=== PATIENT | male | born 2000 | race Two or more races ===

== ENCOUNTER 2020-06-19 02:07 | Emergency (ER) | payer OTHER ==
[~2020-06-19] VITALS: Ht 170.2 cm; Wt 71.7 kg
[2020-06-19] MEDS ORDERED: MEDROLPACK PO (02:27)
[2020-06-19] MEDS ORDERED: ZITHROMAX500 MG PO (02:27)
[2020-06-19] MEDS ORDERED: TUSNEL LIQUID178 ML PO (02:27)
== END 2020-06-19 02:33 | disposition home or self-care (01) ==
LOC: ER 02:07
DX: B34.9 Viral infection, unspecified (principal)

== ENCOUNTER 2020-08-14 13:05 | Emergency (ER) | payer OTHER ==
[~2020-08-14] VITALS: Ht 180.3 cm; Wt 72.6 kg
[~2020-08-14 13:05] MED LIST: MEDROLPACK PO; TUSNEL LIQUID178 ML PO; ZITHROMAX500 MG PO
== END 2020-08-14 14:40 | disposition home or self-care (01) ==
LOC: ER 13:05
DX: S60.471A Other superficial bite of left index finger, initial encounter (principal); W54.0XXA Bitten by dog, initial encounter; Y93.89 Activity, other specified; Y92.89 Other specified places as the place of occurrence of the external cause; Y99.8 Other external cause status

== ENCOUNTER 2020-10-15 11:49 | Emergency (ER) | payer OTHER ==
[~2020-10-15] VITALS: Ht 180.3 cm; Wt 72.6 kg
== END 2020-10-15 23:54 | disposition home or self-care (01) ==
LOC: ER 11:49
DX: R10.31 Right lower quadrant pain (principal); Z11.52 Encounter for screening for COVID-19